=== PATIENT | female | born 1960 | race Caucasian/White ===

== ENCOUNTER 2016-12-04 19:59 | Emergency (ER) | payer MEDICAID ==
[~2016-12-04] VITALS: Ht 167.6 cm; Wt 79.4 kg
[~2016-12-04 19:59] MED LIST: AMOX500C2 PO; BENZ100C18 PO; BUDE6HFA IH; CODE118S2 PO; DEXL60CA PO; DICL500C PO; DOXY100C2 PO; DOXY100T61 PO; FLC100T1 PO; HYDR-707 PO; INSASP10V SQ; INSU100V6 SQ; IPRA3AMP19 IH; LEVO500T69 PO; LORA10CA PO; METH4TAB PO; MULT1CAP27 PO; NF-XOP-HFA IH; NYST1000 PO; ONDN4T PO; OXYC-12 PO; PRM25T PO
[2016-12-04] MEDS ORDERED: NS IV 1000 ML 1,000 ML IV ONE (20:48)
[2016-12-04] MEDS ORDERED: ONDANSETRON 4 MG/2 ML (SDV) Z0FRAN IVP ONE (21:00)
--- NOTE | 2016-12-04 21:41 | Diagnostic Imaging Report ---
INDICATION: 56-year-old female presents with cough, fever, and vomiting COMPARISONS: 10/05/13 FINDINGS: PA and lateral films of the chest show slight prominence of the central lung markings. There is some perihilar and bibasilar atelectatic infiltrates, left greater than right. Cardiac contour is normal. Soft tissues and bony thorax are unremarkable. IMPRESSION: Central reactive airway changes such as bronchitis with superimposed perihilar and bibasilar alveolar infiltrates but no significant confluent consolidations. Dictated by: Dictated on workstation # [id number]
[2016-12-04 21:50] LABS: KETONES,URINE 2+ (NEGATIVE); LEUKOCYTE ESTERASE ,URINE 3+ (NEGATIVE); NITRITE,URINE NEGATIVE (NEGATIVE); PH,URINE 5 (5-9); PROTEIN,URINE 2+ (NEGATIVE); UROBILINOGEN,URINE 1 MG/DL (NORMAL)
[2016-12-04 21:55] LABS: BILIRUBIN,URINE NEGATIVE (NEGATIVE)
[2016-12-04 22:00] LABS: BASOPHILS % (AUTO) 0 % (0-10); EOSINOPHILS # (AUTO) 0.1 10^3/uL (0.0-0.3); EOSINOPHILS % (AUTO) 1 % (0-10); LYMPHOCYTES # (AUTO) 0.6 X 10^3 (1.0-4.0); LYMPHOCYTES % (AUTO) 7 % (12-44); MEAN CORPUSCULAR HEMOGLOBIN 30 PG (25-34); MEAN CORPUSCULAR HGB CONC 35 G/DL (32-36); MEAN CORPUSCULAR VOLUME 88 FL (80-99); MEAN PLATELET VOLUME 10.9 FL (7.4-10.4); MONOCYTES # (AUTO) 0.3 X 10^3 (0.0-1.0); MONOCYTES % (AUTO) 4 % (0-12); NEUTROPHILS % (AUTO) 89 % (42-75); PLATELET COUNT 278 10^3/uL (130-400); RED BLOOD COUNT 5.33 10^6/uL (4.35-5.85); RED CELL DISTRIBUTION WIDTH 13.6 % (10.0-14.5)
[2016-12-04 22:31] LABS: ALBUMIN 4.1 G/DL (3.2-4.5); BILIRUBIN,TOTAL 0.7 MG/DL (0.1-1.0); CALCIUM 8.8 MG/DL (8.5-10.1); CREATININE SERUM 1.04 MG/DL (0.60-1.30); POTASSIUM 3.8 MMOL/L (3.6-5.0); TOTAL PROTEIN 7.2 G/DL (6.4-8.2)
[2016-12-04 22:50] LABS: BAND NEUTROPHILS 11 %; BASOPHILS % (MANUAL) 1 %; EOSINOPHILS % (MANUAL) 1 %; LYMPHOCYTES % (MANUAL) 7 %; NEUTROPHILS % (MANUAL) 78 %
[2016-12-04] MEDS ORDERED: cefTRIAXone INJECTION 1,000 MG in NS (IVPB) 50 ML IV ONE (23:00)
[2016-12-04] MEDS ORDERED: BENZ-13 PO (23:44)
[2016-12-04] MEDS ORDERED: ONDA4TAB8 PO (23:44)
[2016-12-04] MEDS ORDERED: CEFD300C3 PO (23:44)
[2016-12-04] MEDS ORDERED: LACT1CAP8 PO (23:44)
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
[2016-12-04] MEDS ORDERED: RX-ONDANSETRON 4 MG ODT (ZOFRAN) PPK #4 PO STA (23:45)
[2016-12-04 23:53] VITALS: BP 124/86
== END 2016-12-04 23:53 | disposition home or self-care (01) ==
LOC: EDUNIT# 19:59 → ER 20:02
DX: J40 Bronchitis, not specified as acute or chronic (principal); K52.9 Noninfective gastroenteritis and colitis, unspecified; N39.0 Urinary tract infection, site not specified; J44.9 Chronic obstructive pulmonary disease, unspecified; E11.9 Type 2 diabetes mellitus without complications; G82.22 Paraplegia, incomplete; Z79.4 Long term (current) use of insulin; Z79.899 Other long term (current) drug therapy
CPT/HCPCS: 36415; 71020; 80053; 81000; 82150; 82962; 83605; 83690; 83735; 85007; 85027; 87040; 87804; 96361; 96374; 96375

== ENCOUNTER → 2019-09-14 | Outpatient (CLI) | payer MEDICAID ==
[~2019-09-14] VITALS: Ht 165 cm; Wt 77.0 kg
[~2019-09-14] MED LIST changes: +CATHETER FLUSH 10 ML SYR IV PRN; +CEFD300C3 PO; +LACT1CAP8 PO; +ONDA4TAB8 PO; +REGADENOSON 0.4 MG/5 ML SYR (LEXISCAN) IV ONE
--- NOTE | 2019-09-15 00:20 | STRESS TEST ---
DATE OF SERVICE: 09/14/2019 LEXISCAN MYOVIEW STRESS TEST REPORT REFERRING PHYSICIAN: Monserrat Cardoza MD Baseline heart rate is 94. Baseline blood pressure 138/79. Baseline EKG is sinus rhythm with no ischemic changes. In summary, the patient was injected with 10.17 mCi of technetium-99 Myoview and the resting images were obtained. Then, the patient received 0.4 mg of Lexiscan followed by 29.9 mCi of technetium-99 Myoview. Throughout the test, there were no EKG changes. The resting and stress images were reviewed and compared in the short axis, horizontal long axis, and vertical long axis views. Review of the images showed good radiotracer uptake with no significant ischemia or infarction. SSS is 1, SDS 1, TID value 0.83. On the gated images, the left ventricle appeared to be normal size with normal contractility. Calculated ejection fraction 76%. CONCLUSION: 1. The patient tolerated Lexiscan well. 2. No ischemia or infarction on SPECT images. 3. Normal left ventricular size with normal contractility. Calculated ejection fraction 76%. Job ID: [id number] DocumentID: [id number] Dictated Date: 09/14/2019 17:35:51 Director Of Archives Date: 09/14/2019 23:59:10 Dictated By: HIRAM MCCOLLUM MD
== END ==
LOC: CARD 07:31
PROVIDERS: ATTEND Internal Medicine Cardiovascular Disease
DX: J44.9 Chronic obstructive pulmonary disease, unspecified (principal); E11.9 Type 2 diabetes mellitus without complications; I10 Essential (primary) hypertension
CPT/HCPCS: 78452; 93017

== ENCOUNTER → 2019-09-17 | Outpatient (CLI) | payer MEDICAID ==
[~2019-09-17] MED LIST changes: -CATHETER FLUSH 10 ML SYR IV PRN; -REGADENOSON 0.4 MG/5 ML SYR (LEXISCAN) IV ONE
== END ==
LOC: CARD 07:29
PROVIDERS: ATTEND Internal Medicine Cardiovascular Disease
DX: J98.3 Compensatory emphysema (principal); E11.9 Type 2 diabetes mellitus without complications; R06.09 Other forms of dyspnea; I10 Essential (primary) hypertension
CPT/HCPCS: 93306

== ENCOUNTER → 2021-04-18 | Outpatient (CLI) | payer MEDICARE, MEDICAID ==
[2021-04-18 09:57] LABS: BILIRUBIN,URINE NEGATIVE (NEGATIVE); CLARITY,URINE CLEAR; COLOR,URINE YELLOW; GLUCOSE, URINE (UA) NEGATIVE (NEGATIVE); KETONES,URINE NEGATIVE (NEGATIVE); LEUKOCYTE ESTERASE ,URINE 2+ (NEGATIVE); NITRITE,URINE POSITIVE (NEGATIVE); PH,URINE 6.5 (5-9); PROTEIN,URINE NEGATIVE (NEGATIVE)
[2021-04-18 10:10] LABS: BUN/CREATININE RATIO 11; CALCIUM 8.8 MG/DL (8.5-10.1); CARBON DIOXIDE 27 MMOL/L (21-32); CHLORIDE 105 MMOL/L (98-107); CREATININE SERUM 0.87 MG/DL (0.60-1.30); GFR ESTIMATED > 60; GLUCOSE 96 MG/DL (70-105); POTASSIUM 3.9 MMOL/L (3.6-5.0); SODIUM 138 MMOL/L (135-145)
[2021-04-18 10:34] LABS: RBC,URINE 0-2 /HPF
[2021-04-18 10:35] LABS: BACTERIA,URINE LARGE /HPF; SQUAMOUS EPITHELIAL CELL,UR 0-2 /HPF; WBC,URINE 25-50 /HPF
== END ==
LOC: LAB 09:20
PROVIDERS: ATTEND Urology
DX: N39.0 Urinary tract infection, site not specified (principal)
CPT/HCPCS: 36415; 80048; 81000; 87088

== ENCOUNTER → 2021-04-21 | Outpatient (CLI) | payer MEDICARE, MEDICAID ==
--- NOTE | 2021-04-21 09:13 | Diagnostic Imaging Report ---
PROCEDURE: US Renal Bilateral. INDICATION: Urinary tract infection, urine retention TECHNIQUE: Multiple real-time grayscale sonographic images were obtained of the kidneys. CORRELATION: None FINDINGS: RIGHT KIDNEY: 9.7 x 5.2 x 4.3 cm. There is normal echotexture of the right renal parenchyma. No definitive calcification or hydronephrosis. LEFT KIDNEY: 8.9 x 5.5 x 4.8 cm. There is normal echotexture of the left renal parenchyma. No definitive calcification or hydronephrosis. URINARY BLADDER: The partially distended bladder has an unremarkable appearance. Bilateral ureteral jets are present. IMPRESSION: 1. Unremarkable renal sonogram. Dictated by: Dictated on workstation # [id number]
== END ==
LOC: CARD 09:00
PROVIDERS: ATTEND Urology
DX: N39.0 Urinary tract infection, site not specified (principal); R33.9 Retention of urine, unspecified
CPT/HCPCS: 76770

== ENCOUNTER → 2021-04-26 | Outpatient (CLI) | payer MEDICARE, MEDICAID ==
[~2021-04-26] MED LIST changes: +CATHETER FLUSH 10 ML SYR IV PRN; +FUROSEMIDE 40 MG/4 ML INJ (LASIX) IVP ONE; +FUROSEMIDE 40 MG/4 ML INJ (LASIX) ONE
--- NOTE | 2021-04-26 09:44 | Diagnostic Imaging Report ---
INDICATION: Urinary retention, urinary tract infections and renal malfunction. Patient received 5 mCi technetium 99m MAG3 intravenously and sequential imaging performed. At the nd interval the patient received intravenous dose of 40 mg IV Lasix and continued acquisitions and quantification studies performed. FINDINGS: Bilateral renal function curves were symmetric and unremarkable. Time to peak activity for uptake was equal at 180 seconds left and right. 50% peak was observed between the 2 and 3 minute intervals. With Lasix administration, there was symmetrical emptying. There were no scintigraphic findings of significant tubular dysfunction and no scintigraphic findings of hydronephrosis or obstruction. No scintigraphic evidence for dilatation of the collecting systems. There is no pathological finding. IMPRESSION: Normal symmetrical bilateral Lasix renograms, symmetrical function, clearance and no evidence for obstruction. Dictated by: Dictated on workstation # [id number]
== END ==
LOC: CARD 09:00
PROVIDERS: ATTEND Urology
DX: N39.0 Urinary tract infection, site not specified (principal); N28.9 Disorder of kidney and ureter, unspecified
CPT/HCPCS: 78708; A9562